=== PATIENT | female | born 1985 | race Caucasian/White ===

== ENCOUNTER 2016-12-15 19:41 | Emergency (ER) | payer OTHER ==
[2016-12-15 19:56] VITALS: RESP 18
--- NOTE | 2016-12-15 21:01 | ED ---
General Adult HPI - General Chief complaint: Extremity Injury, Lower Stated complaint: foot pain Time Seen by Provider: 12/15/16 20:43 Source: patient, RN notes reviewed Mode of arrival: wheelchair Limitations: no limitations - History of Present Illness Initial comments: This is a 31-year-old female presents with right foot and ankle pain since noon today. Patient states she was walking down the steps and slipped on the ice rolling her right ankle. Patient did not hit her head or lose consciousness. Patient has been ambulating on the right lower extremity but this has been painful. Patient denies any numbness/tingling/weakness. Patient denies any chance of being . Patient denies any recent fever, chills, shortness breath, chest pain, abdominal pain, nausea/vomiting/diarrhea, back pain, hematuria, headache, or visual changes, or any other complaints. - Related Data Home Medications Medication Instructions Recorded Confirmed No Known Home Medications [No 12/15/16 12/15/16 Known Home Medications] Allergies Allergy/AdvReac Type Severity Reaction Status Date / Time No Known Allergies Allergy Verified 12/15/16 20:36 Review of Systems ROS Statement: Those systems with pertinent positive or pertinent negative responses have been documented in the HPI. ROS Other: All systems not noted in ROS Statement are negative. Past Medical History Past Medical History: No Reported History History of Any Multi-Drug Resistant Organisms: None Reported Past Surgical History: No Surgical Hx Reported Past Psychological History: No Psychological Hx Reported Smoking Status: Current every day smoker Past Alcohol Use History: Occasional Past Drug Use History: None Reported General Exam - General Exam Comments Initial Comments: General: The patient is awake and alert, in no distress, and does not appear acutely ill. Neck: The neck is supple, there is no tenderness or JVD. Cardiovascular: There is a regular rate and rhythm. No murmur, rub or gallop is appreciated. Respiratory: Lungs are clear to auscultation, respirations are non-labored, breath sounds are equal. No wheezes, stridor, rales, or rhonchi. Musculoskeletal: Limited range of motion of the right ankle joint due to pain, there is ecchymosis to the lateral aspect of the right foot and right ankle. Patient has tenderness over the lateral malleolus aspect of the right foot. Strength Is 5/5 and Sensation intact. Posterior tibial and dorsalis pedis pulses are 2+ bilaterally. Capillary refill is normal at less than 2 seconds. Neurological: A&O x 3. CN II-XII intact, There are no obvious motor or sensory deficits. Coordination appears grossly intact. Speech is normal. Skin: Skin is warm and dry and no rashes or lesions are noted. Psychiatric: Normal mood and affect. Limitations: no limitations Course Vital Signs 12/15/16 19:53 Temperature 98.7 F Pulse Rate 90 Respiratory 18 Rate Blood Pressure 126/88 O2 Sat by Pulse 99 Oximetry Medical Decision Making - Medical Decision Making This is a 31-year-old female with right ankle and right foot pain. On physical exam Limited range of motion of the right ankle joint due to pain, there is ecchymosis to the lateral aspect of the right foot and right ankle. Patient has tenderness over the lateral malleolus aspect of the right foot. Strength Is 5/5 and Sensation intact. Posterior tibial and dorsalis pedis pulses are 2+ bilaterally. Capillary refill is normal at less than 2 seconds. An x-ray of the right foot and right ankle were done and reviewed showing: X- ray ankle right: No acute fracture or dislocation. X-ray right foot: No acute fracture or dislocation. Report by Dr. Hoffman. Discussed results with patient. Discussed this is most likely an ankle sprain. Discussed rest, ice, elevate and use Jean bandage and Aircast for support while up. Please use crutches as needed for walking. Please perform range of motion exercises to the right ankle periodically throughout the day. I discussed follow-up with orthopedics if pain is not improving in the next 3-5 days. I discussed return parameters. Discussed that patient should follow up with PCP in one to 2 days or return to the [facility] for any worsening symptoms or for any further concerns. Patient was receptive to this plan and patient will be discharged home. Disposition Clinical Impression: Right ankle sprain Disposition: HOME SELF-CARE Condition: Good Instructions: Ankle Sprain (ED) Additional Instructions: Please rest, ice, elevate and use Jean wrap and Aircast for support. Please use crutches as needed for walking. Please perform range of motion exercises to the right ankle multiple times during the day. Please use [id number] Tylenol or Motrin as needed for any pain. Please follow up with orthopedics in the next 5 days if pain is not improved. Please follow-up with family doctor in the next 2 days of symptoms have not improved. Please return to emergency room if the symptoms increase or worsen or for any other concerns. Referrals: None,Stated [Primary Care Provider] - 1-2 days Jennifer Deras MD [STAFF PHYSICIAN] - 1-2 days Refugio Roy MD [Medical Doctor] - 1-2 days Time of Disposition: 21:49
--- NOTE | 2016-12-15 21:30 | XR ---
EXAMINATION TYPE: XR foot complete RT DATE OF EXAM: 12/15/2016 9:10 PM COMPARISON: NONE HISTORY: Right lateral ankle pain and metatarsal pain after fall from stairs. TECHNIQUE: 3 views of the right foot were obtained. FINDINGS: There is no evidence of joint effusion, soft tissue swelling, or soft tissue laceration. An kle mortise is intact. No evidence of fracture or dislocation is identified. Joint spaces are preserv ed with no chronic osseous abnormality appreciated. IMPRESSION: No evidence of fracture or dislocation.
--- NOTE | 2016-12-15 21:32 | XR ---
EXAMINATION TYPE: XR ankle complete RT DATE OF EXAM: 12/15/2016 9:10 PM COMPARISON: Graphs of the right foot from the same day. HISTORY: Right lateral ankle pain and metatarsal pain after fall from stairs. TECHNIQUE: 3 views of the right ankle were obtained. FINDINGS: No evidence of fracture or dislocation. No joint effusion is seen. No radiopaque foreign saeed dy is present. Ankle mortise is intact. There is appropriate anatomic alignment with joint spaces sam ntained. No chronic osseous pathology is evident. No gross soft tissue swelling is seen. IMPRESSION: No acute fracture or dislocation.
[2016-12-15 22:09] VITALS: BP 128/86; PULSE 86; TEMP 98.2
== END 2016-12-15 22:09 | disposition home or self-care (01) ==
LOC: EC 19:41
DX: S93.401A Sprain of unspecified ligament of right ankle, initial encounter (principal); F17.200 Nicotine dependence, unspecified, uncomplicated; W17.89XA Other fall from one level to another, initial encounter; W00.1XXA Fall from stairs and steps due to ice and snow, initial encounter; Y92.007 Garden or yard of unspecified non-institutional (private) residence as the place of occurrence of the external cause
CPT/HCPCS: 99283

== ENCOUNTER → 2020-02-04 | Outpatient (CLI) | payer OTHER ==
--- NOTE | 2020-02-04 13:36 | MM ---
Reason for exam: clinical finding. History: Benign excisional biopsy of the left breast, 2002. Indicated problem(s): lump or thickening in the left breast. Physical Findings: Nurse Summary: 2cm nodule in the left breast at 1 o'clock (nurse mj). [facility] Diagnostic Mammo w CAD TULIO Bilateral CC and MLO view(s) were taken. The breast tissue is heterogeneously dense. This may lower the sensitivity of mammography. Finding: There is a circumscribed round mass in the upper outer quadrant, posterior position of the left breast and some smaller circular lesions. 8mm oval architectural distortion posterior upper outer quadrant right breast. These results were verbally communicated with the patient and result sheet given to the patient on 02/04/20. ASSESSMENT: Incomplete: need additional imaging evaluation, BI-RAD 0 RECOMMENDATION: Ultrasound of both breasts.
--- NOTE | 2020-02-04 13:39 | USB ---
Reason for exam: additional evaluation requested from abnormal screening. History: Benign excisional biopsy of the left breast, 2002. US Breast Limited BILAT Right limited breast ultrasound including focal area of concern, retroareolar and axilla demonstrates a 10 x 6 x 11mm oval, taller than wide, solid, hypoechoic lesion at 9 o'clock for which a biopsy is recommended. Left limited breast ultrasound including focal area of concern, retroareolar and axilla demonstrates a 13 x 8 x 13mm oval, cystic, simple cyst at 1 o'clock and a 38 x 24 x 41mm oval, solid, hypoechoic lesion at 1 o'clock BB for which a biopsy is recommended. These results were verbally communicated with the patient and result sheet given to the patient on 02/04/20. ASSESSMENT: Suspicious, BI-RAD 4 RECOMMENDATION: Ultrasound core biopsy of both breasts.
== END | disposition home or self-care (01) ==
LOC: RADMAMWWP 07:16
PROVIDERS: ATTEND Obstetrics & Gynecology Obstetrics
DX: N63.21 Unspecified lump in the left breast, upper outer quadrant (principal)
CPT/HCPCS: 77066

== ENCOUNTER → 2020-02-11 | Day surgery (SDC) | payer OTHER ==
[2020-02-11 08:31] VITALS: RESP 16; TEMP 98.2
--- NOTE | 2020-02-11 10:30 | USB ---
EXAMINATION TYPE: US biopsy breast VAD RT, US biopsy breast VAD LT DATE OF EXAM: 02/11/2020 CLINICAL HISTORY: 34 year-old female bilateral ABN MAMMOGRAM. Palpable lump left breast. 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 TECHNIQUE: Ultrasound guided core biopsy bilateral breasts. COMPARISON: Mammogram and ultrasound 02/04/2020 FINDINGS: The procedure of ultrasound guided core biopsy was explained to the patient. Benefits, alt ernatives, and risks were discussed. An informed consent was then obtained. The patient was placed in supine positioning for imaging and for the procedure. The overlying skin wa s prepped and draped in usual sterile fashion. Lidocaine was used as anesthetic into the skin and tabares bcutaneous tissue up to area of concern in each breast in turn. RIGHT: 9:00 9mm hypoechoic circumscribed oval mass: Under ultrasound guidance, a 13-gauge vacuum-assi sted mammotome Elite biopsy gun was used to obtain 5 core samples. Following this, a coil clip was l eft in lesion. LEFT: 1:00 3.5cm hypoechoic circumscribed large mass: Under ultrasound guidance, a 13-gauge vacuum-as sisted mammotome Elite biopsy gun was used to obtain 6 core samples. Following this, a ribbon clip w as left in lesion. The patient tolerated the procedure well without any immediate complication. The patient was kept in the radiology department for short stay after the procedure and then discharged home in stable condi tion. Postbiopsy mammograms were deferred at this time to decrease personnel exposure in the setting of the COVID pandemic. IMPRESSION: Successful, uncomplicated ultrasound guided core biopsy bilateral breasts. 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 Full pathology results to follow.
[2020-02-11 10:41] VITALS: BP 123/85; PULSE 56
== END ==
LOC: RADUSWWP 08:13
PROVIDERS: ATTEND Surgery
DX: D24.2 Benign neoplasm of left breast (principal); D24.1 Benign neoplasm of right breast
CPT/HCPCS: 88305; 19083; 19084; A4648; J2001

== ENCOUNTER → 2020-03-15 | Outpatient (CLI) | payer OTHER | END | disposition home or self-care (01) | LOC: LABWHC1 09:10 | PROVIDERS: ATTEND Surgery | DX: U07.1 COVID-19 (principal) | CPT/HCPCS: 87635 ==

== ENCOUNTER → 2020-03-17 | Day surgery (SDC) | payer OTHER ==
[2020-03-16 08:48] VITALS: BMI 25.1
[~2020-03-17] MED LIST: ACETAMINOPHEN TAB 500 MG TAB PO ONE; BUPIVACAIN-EPI 0.25%-1:200,000 30 ML VIAL SQ ONE; DEXAMETHASONE SOD PHOSPHATE 10 MG/ML 1 ML VIAL IV ONE; HEPARIN SODIUM,PORCINE 5,000 UNIT/ML 1 ML VIAL SQ ONE; HYDROcodone/APAP 5-325MG 1 EACH TAB PO PRN; HYDROmorphone 0.5 MG/0.5 ML SYRINGE IVP PRN; LACTATED RINGERS 1,000 ML IV SCH; LIDOCAINE 1% (10MG/ML) FOR IV START INTRADERMA PRN; LIDOCAINE 1% INJ 10MG/ML (20 ML MDV) ONE; MIDAZOLAM 2 MG/2 ML VIAL IV PRN; MIDAZOLAM 2 MG/2 ML VIAL ONE; NALOXONE 0.4 MG/ML 1 ML VIAL IV PRN; ONDANSETRON 4 MG/2 ML VIAL IVP ONE; PROPOFOL 10 MG/ML 20 ML VIAL IV ONE; fentaNYL (PF) 50 MCG/ML 2 ML AMP ONE
[2020-03-17 07:09] VITALS: RESP 16
--- NOTE | 2020-03-17 08:43 | P.OP ---
Date of Procedure: 03/17/20 Procedure(s) Performed: REOPERATIVE DIAGNOSIS: Left breast mass POSTOPERATIVE DIAGNOSIS: Same PROCEDURE: Excisional biopsy left breast SURGEON: Bora EBL: 10 mL ANESTHESIA: General COMPLICATIONS: None OPERATIVE PROCEDURE: Patient was placed on the operating room table in the supine position. The breast was prepped and draped in usual sterile fashion. The skin was localized. An incision was made laterally on the breast at approximately 2:00 near a fold of skin between the axilla and breast. Dissectio n down through the subcutaneous tissues took place using electrocautery. The mass was identified. It was fully excised using electrocautery. The mass was fairly large measuring approximately 5 cm in maximum dimension. This was sent to pathology. One small area of bleeding was controlled using a 3-[address]. No further bleeding seen. The subcutaneous tissues were closed using 3-0 Vicryl sutures. The skin was closed using a running 4-0 Monocryl stitch. Skin glue and sterile dressings were then applied. DISPOSITION: Stable to recovery room
[2020-03-17 08:51] VITALS: TEMP 97.3
[2020-03-17 09:33] VITALS: BP 129/82; PULSE 77
== END ==
LOC: OR 06:46
PROVIDERS: ATTEND Surgery
DX: D24.2 Benign neoplasm of left breast (principal); Z98.890 Other specified postprocedural states; F17.210 Nicotine dependence, cigarettes, uncomplicated
CPT/HCPCS: 81025; 88305; 19120; J2250; J1644; J1100; J0690; J2405; J2001; J3010; J2704

== ENCOUNTER → 2021-08-13 | Outpatient (CLI) | payer OTHER ==
--- NOTE | 2021-08-13 11:34 | P.STRESS ---
- Stress Test Note Stress Test Results/Findings: Exam Performed: stress echo exercise Exam Date: 08/13/21 Reason for Exam: Syncope Height: 5 ft 9 in Weight: 155 kg Protocol: stress echo Stage: iv Duration of Exercise: 9 Resting Heart Rate: 67 Resting Blood Pressure: 104/68 Maximum Achieved Heart Rate: 166 Maximum Achieved Blood Pressure: 160/74 85% PMHR: 156 100% PMHR: 183 METS: 10.5 Technologist Comment: Stress Test Results/Findings: Patient underwent exercise stress echo with a Paramjit protocol treadmill stress test. Patient exercised into Stage 4 for a total of 9 minutes reaching a total of 10.5 METS. Patient's maximum heart rate was 166 which represented 90% age- predicted maximum heart rate. Stress EKG portion: At baseline patient's EKG showed Normal sinus rhythm, normal axis, no significant ST or T wave abnormalities. With exercise there is nondiagnostic upsloping 0.[address] depressions in the inferior leads. Stress echo portion: 2-D echocardiogram was performed in the parasternal long, personal short, apical 2 and apical four-chamber views at rest, peak exercise and in recovery. At baseline, echocardiogram showed left ventricular ejection fraction 55% without wall motion abnormalities. With peak exercise, echocardiogram shows improvement in left ventricular ejection fraction, increase contractility, decrease in left ventricular end systolic dimension without wall motion abnormalities consistent with a normal response to exercise. Conclusions: 1. Normal EKG and echo response to exercise without evidence of inducible ischemia. 2. Good exercise capacity.
== END | disposition home or self-care (01) ==
LOC: RADNMMAIN 09:43
PROVIDERS: ATTEND Nurse Practitioner Family
DX: R55 Syncope and collapse (principal)
CPT/HCPCS: 93351

== ENCOUNTER → 2021-10-28 | Outpatient (CLI) | payer OTHER ==
--- NOTE | 2021-10-28 12:24 | US ---
EXAMINATION TYPE: US transvaginal DATE OF EXAM: 10/28/2021 COMPARISON: NONE CLINICAL HISTORY: 36-year-old female R10.9 abd cramping N92.0 menorrhagia w/ reg cycle. TECHNIQUE: Transvaginal (TV). Date of LMP: 10/19/2021 FINDINGS: EXAM MEASUREMENTS: Uterus: 8.4 x 3.8 x 5.2 cm Endometrial Stripe: 0.26 cm Right Ovary: 3.1 x 2.5 x 2.0 cm Left Ovary: 3.0 x 2.1 x 2.1 cm 1. Uterus: Anteverted. Multiple nabothian cysts within the cervix measuring up to 9 mm. Query C-se ction scar. 2. Endometrium: wnl 3. Right Ovary: wnl 4. Left Ovary: wnl 5. Bilateral Adnexa: wnl 6. Posterior cul-de-sac: wnl IMPRESSION: 1. Incidental cervical nabothian cysts measuring up to 9 mm. 2. Query scar. 3. Otherwise, unremarkable sonographic examination of the pelvis.
== END | disposition home or self-care (01) ==
LOC: RADUSWWP 07:55
PROVIDERS: ATTEND Family Medicine
DX: R10.9 Unspecified abdominal pain (principal); N92.0 Excessive and frequent menstruation with regular cycle
CPT/HCPCS: 76830

== ENCOUNTER 2024-07-10 06:43 | Emergency (ER) | payer OTHER ==
[2024-07-10 06:48] VITALS: RESP 18
--- NOTE | 2024-07-10 07:01 | ED ---
Back Pain HPI - General Chief Complaint: Back Pain/Injury Stated Complaint: Fall, Back Pain Time Seen by Provider: 07/10/24 06:49 Source: patient, RN notes reviewed Limitations: no limitations - History of Present Illness Initial Comments: 39-year-old female presents emergency department complaint of low back pain. Patient states that she slipped on her steps coming down on her buttocks and felt a pop in her low back. She states she has severe low back pain causing her difficulty to move because of pain. Denies any head injury no loss conscious no mid to upper back pain she denies any bowel or bladder incontinence retention denies any lower extremity symptoms including paresthesias or weakness no abdominal pain - Related Data Previous Rx's Medication Instructions Recorded Cyclobenzaprine [Flexeril] 10 mg PO TID PRN #15 tab 07/10/24 HYDROcodone/APAP 7.5-325MG [[place] 1 tab PO Q6HR PRN 3 Days #12 tab 07/10/24 7.5-325] Allergies Allergy/AdvReac Type Severity Reaction Status Date / Time No Known Allergies Allergy Verified 03/17/20 07:17 Review of Systems ROS Statement: Those systems with pertinent positive or pertinent negative responses have been documented in the HPI. ROS Other: All systems not noted in ROS Statement are negative. Past Medical History Past Medical History: No Reported History History of Any Multi-Drug Resistant Organisms: None Reported Past Surgical History: Breast Surgery Additional Past Surgical History / Comment(s): Benign left breast excisional biopsy age 18 Past Anesthesia/Blood Transfusion Reactions: No Reported Reaction Past Psychological History: No Psychological Hx Reported Smoking Status: Current every day smoker, Vaper Past Alcohol Use History: Occasional Past Drug Use History: Marijuana General Exam Limitations: no limitations General appearance: alert, in no apparent distress Head exam: Present: atraumatic, normocephalic, normal inspection Eye exam: Present: normal appearance, PERRL, EOMI. Absent: scleral icterus, conjunctival injection, periorbital swelling Neck exam: Present: normal inspection, full ROM. Absent: tenderness Respiratory exam: Present: normal lung sounds bilaterally. Absent: respiratory distress, wheezes, rales, rhonchi, stridor Cardiovascular Exam: Present: regular rate, normal rhythm, normal heart sounds. Absent: systolic murmur, diastolic murmur, rubs, gallop, clicks GI/Abdominal exam: Present: soft, normal bowel sounds. Absent: distended, tenderness, guarding, rebound, rigid Extremities exam: Present: normal inspection, full ROM, normal capillary refill. Absent: tenderness, pedal edema, joint swelling, calf tenderness Back exam: Present: normal inspection, tenderness, paraspinal tenderness, vertebral tenderness. Absent: full ROM Neurological exam: Present: alert, oriented X3, CN II-XII intact, reflexes normal. Absent: motor sensory deficit Skin exam: Present: warm, dry, intact, normal color. Absent: rash Course Vital Signs 07/10/24 07/10/24 06:45 08:25 Temperature 98.3 F 98 F Pulse Rate 97 87 Respiratory 18 18 Rate Blood Pressure 142/99 147/94 O2 Sat by Pulse 99 100 Oximetry Medical Decision Making - Medical Decision Making Was pt. sent in by a medical professional or institution (, PA, PR SPECIALIST, urgent care, hospital, or detention...) When possible be specific @ -No Did you speak to anyone other than the patient for history (EMS, parent, family, police, friend...)? What history was obtained from this source @ -No Did you review nursing and triage notes (agree or disagree)? Why? @ -I reviewed and agree with nursing and triage notes Were old charts reviewed (outside hosp., previous admission, EMS record, old EKG, old radiological studies, urgent care reports/EKG's, detention records)? Report findings @ -No old charts were reviewed Differential Diagnosis (chest pain, altered mental status, abdominal pain women, abdominal pain men, vaginal bleeding, weakness, fever, dyspnea, syncope, headache, dizziness, GI bleed, back pain, seizure, CVA, palpatations, mental health, musculoskeletal)? @ -Differential Back Pain: Strain, zoster, cauda equina syndrome, epidural abscess, vertebral osteomyelitis, discitis, fracture, subluxation, disc herniation, DJD, spinal stenosis, dissection, AAA, pancreatitis, peptic ulcer disease, pyelonephritis, kidney stone, this is not meant to be an all-inclusive list. EKG interpreted by me (3pts min.). @ -None X-rays interpreted by me (1pt min.). @ -None done CT interpreted by me (1pt min.). @ -CT lumbar showing T12 compression fracture 15% minimal retropulsion U/S interpreted by me (1pt. min.). @ -None done What testing was considered but not performed or refused? (CT, X-rays, U/S, labs)? Why? @ -None What meds were considered but not given or refused? Why? @ -None Did you discuss the management of the patient with other professionals (professionals i.e. , PA, PR SPECIALIST, lab, RT, psych nurse, social scientist, hat steamer, teacher, field crop technical officer, case supervisor)? Give summary @ -Discussed the case with on-call orthopedics Sherrill Adam who recommends follow-up in office no lifting twisting bending Was smoking cessation discussed for >3mins.? @ -No Was critical care preformed (if so, how long)? @ -No Were there social determinants of health that impacted care today? How? (Homelessness, low income, unemployed, alcoholism, drug addiction, transportation, low edu. Level, literacy, decrease access to med. care, penitentiary, rehab)? @ -No Was there de-escalation of care discussed even if they declined (Discuss DNR or withdrawal of care, Hospice)? DNR status @ -No What co-morbidities impacted this encounter? (DM, HTN, Smoking, COPD, CAD, Cancer, CVA, ARF, Chemo, Hep., AIDS, mental health diagnosis, sleep apnea, morbid obesity)? @ -None Was patient admitted / discharged? Hospital course, mention meds given and route, prescriptions, significant lab abnormalities, going to OR and other pertinent info. @ -Discharge patient updated on CT findings of compression of l thoracic fracture patient will follow-up with the orthopedic office advised no excessive lifting twisting bending lifting over 5 pounds. Undiagnosed new problem with uncertain prognosis? @ -No Drug Therapy requiring intensive monitoring for toxicity (Heparin, Nitro, Insulin, Cardizem)? @ -No Were any procedures done? @ -No Diagnosis/symptom? @ -Thoracic compression fracture Acute, or Chronic, or Acute on Chronic? @ -Acute Uncomplicated (without systemic symptoms) or Complicated (systemic symptoms)? @ -Uncomplicated Side effects of treatment? @ -No Exacerbation, Progression, or Severe Exacerbation? @ -No Poses a threat to life or bodily function? How? (Chest pain, [place], SC, pneumonia, PE, COPD, DKA, ARF, appy, cholecystitis, CVA, Diverticulitis, Homicidal, Suicidal, threat to staff... and all critical care pts) @ -No Disposition Clinical Impression: Thoracic compression fracture Disposition: HOME SELF-CARE Condition: Stable Instructions (If sedation given, give patient instructions): Vertebral Compression Fracture (ED) Additional Instructions: Please return to the Emergency Department if symptoms worsen or any other concerns. Prescriptions: Cyclobenzaprine [Flexeril] 10 mg PO TID PRN #15 tab PRN Reason: Muscle Spasm HYDROcodone/APAP 7.5-325MG [[place] 7.5-325] 1 tab PO Q6HR PRN 3 Days #12 tab PRN Reason: pain Is patient prescribed a controlled substance at d/c from ED?: Yes When asked, does pt state using other controlled substances?: No If prescribed controlled substance>3 days was MAPS reviewed?: Prescribed <3 Days If opioid is for acute pain is fill amount 7 days or less?: Yes If Rx opioid, was Start Talking consent form obtained?: Yes Referrals: Chris Banda MD [STAFF PHYSICIAN] - 1-2 days Cassius Preston DO [Doctor of Osteopathic Medicine] - 1-2 days Time of Disposition: 08:37
[2024-07-10] MEDS: HYDROmorphone 1 MG/ML 1 ML SYRINGE IM STA (07:06)
--- NOTE | 2024-07-10 08:17 | CT ---
EXAMINATION TYPE: CT lumbar spine wo con DATE OF EXAM: 07/10/2024 COMPARISON: None HISTORY: 39-year-old female with Trauma, pain, Fall TECHNIQUE: Contiguous axial scanning of the lumbar spine without IV contrast. Coronal and sagittal re constructions performed. CT DLP: 695.1 mGycm Automated exposure control for dose reduction was used. FINDINGS: There is a nonacute appearing superior endplate fracture of T12. This results in minimal retropulsion into the ventral spinal canal but no significant spinal canal stenosis. Associated paravertebral sof t tissue swelling. Minimal, 15% overall vertebral body height loss the leads slight anterior wedging deformity that results. Minimal endplate deformity of L1 has a more chronic appearance No focal disc herniation or canal compromise. No significant neuroforaminal stenosis seen. 3 mm nonobstructive left renal stone. IMPRESSION: 1. ACUTE OR SUBACUTE SUPERIOR ENDPLATE FRACTURE OF T12. MINIMAL, 15% OVERALL VERTEBRAL BODY HEIGHT LO SS AND MINIMAL ANTERIOR WEDGING. MINIMAL RETROPULSION INTO THE VENTRAL SPINAL CANAL. NO SIGNIFICANT S OBDULIA CANAL STENOSIS. 2. Minimal superior endplate deformity of L1 has a chronic appearance.
[2024-07-10] MEDS: HYDROcodone/APAP 7.5-325MG 1 EACH TAB PO ONE (08:30)
[2024-07-10 09:11] VITALS: BP 140/89; PULSE 84; TEMP 98.1
== END 2024-07-10 09:10 | disposition home or self-care (01) ==
LOC: EC 06:43
CPT/HCPCS: 72131; 96372; 99284

== ENCOUNTER → 2024-07-17 | Outpatient (CLI) | payer OTHER ==
--- NOTE | 2024-07-20 09:33 | MR ---
EXAMINATION TYPE: MR noelleine/lspine wo con DATE OF EXAM: 07/17/2024 8:02 PM CLINICAL INDICATION: Female, 39 years old with history of S22.080D, M54.6 PAIN IN THORACIC SPINE; PHH , T12 compression fracture due to slip and fall down stairs COMPARISON: 07/02/2024 TECHNIQUE: Multi planar, multi sequence imaging was performed utilizing: T1-weighted, T2-weighted, a nd turbo inversion recovery imaging of the thoracic and lumbar spine. IV Contrast: cc . None. FINDINGS: Alignment: The thoracic and lumbar vertebral bodies have preserved heights and alignment. Cord: The conus medullaris and the distal spinal cord appear unremarkable with regards to their signa l intensity and morphology. Bones/Discs: Compression fracture T12 vertebral body with 25% height loss. 4 mm retropulsion. Mild saeed ny edema present within this vertebral body. Mild multilevel degeneration with space narrowing osteop hyte formation and facet joint arthropathy. THORACIC: No evidence significant spinal canal or neural foraminal stenosis. Spinal cord is within no rmal limits. LUMBAR: T12-L1: No evidence of significant spinal canal stenosis or neural foraminal stenosis. L1-L2: No evidence of significant spinal canal stenosis or neural foraminal stenosis. L2-L3: No evidence of significant spinal canal stenosis or neural foraminal stenosis. L3-L4: No evidence of significant spinal canal stenosis or neural foraminal stenosis. L4-L5: No evidence of significant spinal canal stenosis or neural foraminal stenosis. L5-S1: No evidence of significant spinal canal stenosis. Facet joint arthropathy mild bilateral neura l foraminal stenosis. Other findings: None. IMPRESSION: Compression fracture of the T12 vertebral body with 25% height loss 4 mm retropulsion. No significant spinal canal or neural foraminal stenosis.
== END | disposition home or self-care (01) ==
LOC: RADMRIMAIN 18:37
PROVIDERS: ATTEND Orthopaedic Surgery
DX: S22.080D Wedge compression fracture of T11-T12 vertebra, subsequent encounter for fracture with routine healing (principal); W10.9XXD Fall (on) (from) unspecified stairs and steps, subsequent encounter
CPT/HCPCS: 72146; 72148

== ENCOUNTER 2025-05-13 16:11 | Emergency (ER) | payer OTHER ==
[2025-05-13 16:24] VITALS: RESP 18
--- NOTE | 2025-05-13 17:03 | ED ---
Recheck HPI - General Source: patient, RN notes reviewed Mode of arrival: ambulatory Limitations: no limitations <Emir Hairston - Last Filed: 05/13/25 17:00> - General Source: patient, RN notes reviewed Mode of arrival: ambulatory Limitations: no limitations <Louis Marquez - Last Filed: 05/13/25 18:49> - General Chief Complaint: Needlestick/Exposure Stated Complaint: Exposure to a needle Time Seen by Provider: 05/13/25 16:30 - History of Present Illness Initial Comments: Quick note: This is a 39-year-old female presenting for following needlestick at work. Patient states she works at [employer], obtaining a needlestick to her right middle finger earlier today. Patient states she was closing an employee's bag, who recently had a diabetic episode, accidentally poking her finger on uncapped needle. Patient states she washed her hands for about 15 minutes and applied peroxide. States employee has no history of hepatitis or HIV. Tetanus vaccination status not ascertained. (Emir Hairston) Patient is a 39-year-old female presenting to the emergency department with needlestick injury. 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 She was zipping up that patient's bag and was caught by the needle and her right middle finger. That patient reportedly has no history of any blood- borne disease including any STD, HIV or hepatitis. Patient has no complaints otherwise. Unclear last tetanus immunization, possibly 12 years (Louis Marquez) - Related Data Previous Rx's Medication Instructions Recorded Cyclobenzaprine [Flexeril] 10 mg PO TID PRN #15 tab 07/10/24 HYDROcodone/APAP 7.5-325MG [Jackson 1 tab PO Q6HR PRN 3 Days #12 tab 07/10/24 7.5-325] Allergies Allergy/AdvReac Type Severity Reaction Status Date / Time No Known Allergies Allergy Verified 05/13/25 16:24 Review of Systems ROS Other: All systems not noted in ROS Statement are negative. <Emir Hairston - Last Filed: 05/13/25 17:00> ROS Other: All systems not noted in ROS Statement are negative. Constitutional: Denies: fever Eyes: Denies: eye pain ENT: Denies: ear pain Respiratory: Denies: cough Cardiovascular: Denies: chest pain <Louis Marquez - Last Filed: 05/13/25 18:49> ROS Statement: Those systems with pertinent positive or pertinent negative responses have been documented in the HPI. Past Medical History Past Medical History: No Reported History History of Any Multi-Drug Resistant Organisms: None Reported Past Surgical History: Breast Surgery Additional Past Surgical History / Comment(s): Benign left breast excisional biopsy age 18 Past Anesthesia/Blood Transfusion Reactions: No Reported Reaction Past Psychological History: No Psychological Hx Reported Smoking Status: Current every day smoker, Vaper Past Alcohol Use History: Occasional Past Drug Use History: Marijuana <Emir Hairston - Last Filed: 05/13/25 17:00> General Exam Limitations: no limitations <Emir Hairston - Last Filed: 05/13/25 17:00> Limitations: no limitations General appearance: alert, in no apparent distress Head exam: Present: atraumatic Eye exam: Present: normal appearance Respiratory exam: Present: normal lung sounds bilaterally Cardiovascular Exam: Present: regular rate, normal rhythm Neurological exam: Present: alert Psychiatric exam: Present: normal affect, normal mood Skin exam: Present: abrasion (Right distal dorsal middle finger, distal to the DIP.) <Louis Marquez - Last Filed: 05/13/25 18:49> - General Exam Comments Initial Comments: Visual Physical Exam Vital signs reviewed General: Well-appearing, nontoxic, no acute distress. Head: Normocephalic, atraumatic Eyes: PERRLA, EOMI ENT: Airway patent Chest: Nonlabored breathing Skin: No visual rash, normal skin tone Neuro: Alert and oriented 3 Musculoskeletal: No gross abnormalities (Emir Hairston) Course Vital Signs 05/13/25 16:19 Temperature 98.5 F Pulse Rate 74 Respiratory 18 Rate Blood Pressure 150/92 O2 Sat by Pulse 95 Oximetry Medical Decision Making <Emir Hairston - Last Filed: 05/13/25 17:00> <Louis Marquez - Last Filed: 05/13/25 18:49> - Medical Decision Making I completed the quick note portion of this chart signed KIEL Carson (Emir Hairston) Was pt. sent in by a medical professional or institution ([facility], [employer], urgent care, hospital, or fpc...) When possible be specific @ -Patient was sent from her work Did you speak to anyone other than the patient for history (EMS, parent, family, police, friend...)? What history was obtained from this source @ -No Did you review nursing and triage notes (agree or disagree)? Why? @ -I reviewed and agree with nursing and triage notes Were old charts reviewed (outside hosp., previous admission, EMS record, old EKG, old radiological studies, urgent care reports/EKG's, fpc records)? Report findings @ -No old charts were reviewed Differential Diagnosis (chest pain, altered mental status, abdominal pain women, abdominal pain men, vaginal bleeding, weakness, fever, dyspnea, syncope, headache, dizziness, GI bleed, back pain, seizure, CVA, palpatations, mental health, musculoskeletal)? @ -Not applicable EKG interpreted by me (3pts min.). @ -As above X-rays interpreted by me (1pt min.). @ -None done CT interpreted by me (1pt min.). @ -None done U/S interpreted by me (1pt. min.). @ -None done What testing was considered but not performed or refused? (CT, X-rays, U/S, labs)? Why? @ -None What meds were considered but not given or refused? Why? @ -None Did you discuss the management of the patient with other professionals (professionals i.e. , PA, [employer], lab, RT, psych nurse, socially responsible investment adviser, vice president for instruction, teacher, supervisory cbp officer, director of casework services)? Give summary @ -No Was smoking cessation discussed for >3mins.? @ -No Was critical care preformed (if so, how long)? @ -No Were there social determinants of health that impacted care today? How? (Homelessness, low income, unemployed, alcoholism, drug addiction, transportation, low edu. Level, literacy, decrease access to med. care, half-way, rehab)? @ -No Was there de-escalation of care discussed even if they declined (Discuss DNR or withdrawal of care, Hospice)? DNR status @ -No What co-morbidities impacted this encounter? (DM, HTN, Smoking, COPD, CAD, Cancer, CVA, ARF, Chemo, Hep., AIDS, mental health diagnosis, sleep apnea, morbid obesity)? @ -None Was patient admitted / discharged? Hospital course, mention meds given and route, prescriptions, significant lab abnormalities, going to OR and other pertinent info. @ -Patient presents with needlestick. Testing was ordered. Patient will be discharged to follow-up with [facility] Undiagnosed new problem with uncertain prognosis? @ -No Drug Therapy requiring intensive monitoring for toxicity (Heparin, Nitro, Insulin, Cardizem)? @ -No Were any procedures done? @ -No Diagnosis/symptom? @ -Needlestick Acute, or Chronic, or Acute on Chronic? @ -Acute Uncomplicated (without systemic symptoms) or Complicated (systemic symptoms)? @ -Default Side effects of treatment? @ -No Exacerbation, Progression, or Severe Exacerbation? @ -No Poses a threat to life or bodily function? How? (Chest pain, USA, OR, pneumonia, PE, COPD, DKA, ARF, appy, cholecystitis, CVA, Diverticulitis, Homicidal, Suicid al, threat to staff... and all critical care pts) @ -No Blood-borne pathogen testing ordered by nursing staff and their paperwork (Louis Marquez) Disposition <Emir Hairston - Last Filed: 05/13/25 17:00> Is patient prescribed a controlled substance at d/c from ED?: No Time of Disposition: 18:46 <Louis Marquez - Last Filed: 05/13/25 18:49> Clinical Impression: Needlestick injury accident Disposition: HOME SELF-CARE Condition: Stable Instructions (If sedation given, give patient instructions): Body Substance Exposure (ED) Additional Instructions: Please follow-up with [facility] in the next 1 or 2 days for recheck and lab results. Wash area twice daily with soap and water and apply antibiotic ointment. Return for illness, increased pain or redness, worsening symptoms or other concerns. Referrals: None,Stated [REFERRING] - 1-2 days
[2025-05-13] MEDS: DIPH,PERTUS(ACELL)TETVAC-LF 0.5 ML VIAL IM ONE (18:50)
[2025-05-13 18:56] VITALS: BP 140/89; PULSE 70; TEMP 98.2
[2025-05-14 03:02] LABS: Hepatitis B Surface Antigen Nonreactive (Nonreactive); Hepatitis C IgG Antibody Nonreactive (Nonreactive)
[2025-05-14 03:05] LABS: Hepatitis B Surface AB- Quant 269.0 mIU/mL
[2025-05-14 06:11] LABS: HIV 2 AB Non-Reactive (Non-Reactive); HIV AB P24 Non-Reactive (Non-Reactive); HIV P24 AG Non-Reactive (Non-Reactive)
== END 2025-05-13 18:55 | disposition home or self-care (01) ==
LOC: EC 16:11
DX: S61.232A Puncture wound without foreign body of right middle finger without damage to nail, initial encounter (principal); F17.290 Nicotine dependence, other tobacco product, uncomplicated; Z23 Encounter for immunization; W46.0XXA Contact with hypodermic needle, initial encounter; Y99.0 Civilian activity done for income or pay
CPT/HCPCS: 36415; 86704; 86706; 86803; 87340; 87390; 90471; 90715; 99283